=== PATIENT | male | born 1970 | race Native Hawaiian/Other Pacific Islander ===

== ENCOUNTER 2020-07-13 21:33 | Emergency (ER) | payer OTHER ==
[~2020-07-13] VITALS: Ht 182.9 cm; Wt 102.1 kg
[2020-07-13 21:33] VITALS: TEMP 98.7
[2020-07-13 22:07] LABS: PLATELET COUNT 324 K/uL (142-355)
[2020-07-14 02:00] VITALS: BP 164/92
== END 2020-07-14 02:18 | disposition home or self-care (01) ==
LOC: ED 21:33
PROVIDERS: Emergency Medicine
DX: F15.129 Other stimulant abuse with intoxication, unspecified (principal); G25.1 Drug-induced tremor; Y92.89 Other specified places as the place of occurrence of the external cause
CPT/HCPCS: 80053; 80307; 81000; 85027; 93005; 96360; 99284